=== PATIENT | male | born 1960 | race American Indian/Alaskan Native ===

== ENCOUNTER 2019-02-11 17:25 | Emergency (ER) | payer OTHER ==
[2019-02-11] MEDS ORDERED: CATAPRES PO ONE (17:57)
--- NOTE | 2019-02-11 17:57 | Emergency Department Report ---
Blank Doc - Documentation Documentation: This is a 59-year-old male that presents with headache and uncontrolled HTN. Denies trauma. This initial assessment/diagnostic orders/clinical plan/treatment(s) is/are subject to change based on patient's health status, clinical progression and re- assessment by fellow clinical providers in the ED. Further treatment and workup at subsequent clinical providers discretion. Patient/guardians urged not to elope from the ED as their condition may be serious if not clinically assessed and managed. Initial orders include: 1- Patient sent to [facility] for further evaluation and treatment 2- catapress 3- CT head
--- NOTE | 2019-02-11 20:33 | Cat Scan Report ---
PROCEDURE: CT HEAD/BRAIN WO CON TECHNIQUE: CT images of the head were obtained without the use of IV contrast HISTORY: headache COMPARISONS: None available FINDINGS: There is a 2 cm asymmetric focal white matter low-attenuation area in the left parietal lobe superior ly. Although this could be related to white matter ischemic disease, recommend MRI without and with I V contrast to exclude underlying parenchymal mass. No significant mass effect. No hydrocephalus. No e vidence of hemorrhage or acute territorial infarction. Intracranial arteries are symmetric in density . No fracture. Visualized paranasal sinuses are aerated. There is fluid attenuation the right mastoid . There is chronic deformity of the left medial orbital wall, likely posttraumatic. IMPRESSION: There is asymmetric focal white matter low-attenuation in the left parietal lobe superiorly. Although this could be related to white matter microvascular ischemic disease, recommend MRI without and with IV contrast to exclude underlying parenchymal mass, as no prior studies are available for comparison This document is electronically signed by Merle Modi MD., Feb 11 2019 08:30:59 PM ET
[2019-02-11 22:43] LABS: Basophils % (Auto) 0.4 % (0.0-1.8); Eosinophils # (Auto) 0.1 K/mm3 (0.0-0.4); Eosinophils % (Auto) 0.9 % (0.0-4.3); Hematocrit 43.3 % (35.5-45.6); Hemoglobin 14.2 gm/dl (11.8-15.2); Lymphocytes # (Auto) 2.6 K/mm3 (1.2-5.4); Lymphocytes % (Auto) 47.3 % (13.4-35.0); Mean Corpuscular HGB Conc 33 % (32-34); Mean Corpuscular Volume 90 fl (84-94); Monocytes # (Auto) 0.5 K/mm3 (0.0-0.8); Monocytes % (Auto) 9.3 % (0.0-7.3); Platelet Count 267 K/mm3 (140-440); Red Blood Count 4.78 M/mm3 (3.65-5.03); Red Cell Distribution Width 16.2 % (13.2-15.2)
[2019-02-11 23:09] LABS: Alanine Aminotransferase 12 units/L (7-56); Albumin 3.7 g/dL (3.9-5); Blood Urea Nitrogen 8 mg/dL (9-20); Calcium 9.4 mg/dL (8.4-10.2); Hemolysis Index 24
[2019-02-11 23:15] LABS: BUN/Creatinine Ratio 7
--- NOTE | 2019-02-12 01:49 | Emergency Department Report ---
ED Headache HPI - General Chief Complaint: Headache Stated Complaint: HEADACHE 4DAYS Time Seen by Provider: 02/11/19 17:55 Source: patient Exam Limitations: no limitations - History of Present Illness Timing/Duration: constant, waxing and waning, other (chronic ) Quality: severe, sharp, throbbing Head Injury Location: other (diffusely) Recent Head Trauma: chronic headaches Modifying Factors: improves with: movement Associated Symptoms: denies symptoms. denies: fatigue, facial pain, fever/chills, loss of consciousness, nausea/vomiting, nasal congestion, nasal drainage, numbness in legs/feet, seizures, sinus infection, stiff neck, vision changes, weakness Allergies/Adverse Reactions: Allergies No Known Allergies Allergy (Unverified 02/11/19 17:27) ED Review of Systems ROS: Stated complaint: HEADACHE 4DAYS Other details as noted in HPI Comment: All other systems reviewed and negative Constitutional: no symptoms reported, see HPI. denies: chills, fever, malaise, weakness Eyes: as per HPI. denies: eye pain, eye discharge, vision change ENT: as per HPI. denies: ear pain, throat pain, dental pain, hearing loss, congestion Respiratory: no symptoms reported, see HPI. denies: cough, shortness of breath, SOB with exertion Cardiovascular: as per HPI. denies: chest pain, palpitations, dyspnea on exertion, syncope, paroxysmal nocturnal dyspnea Endocrine: no symptoms reported. denies: see HPI, excessive sweating, flushing, intolerance to cold, increased hunger, increased thirst, increased urine, unexplained weight loss Gastrointestinal: as per HPI. denies: abdominal pain, nausea, vomiting, constipation, hematemesis, hematochezia Genitourinary: as per HPI. denies: urgency, dysuria, hematuria, testicular mass Musculoskeletal: as per HPI. denies: back pain, joint swelling, arthralgia, myalgia Skin: as per HPI. denies: rash, change in color, change in hair/nails Neurological: as per HPI, headache, other (dizziness). denies: numbness, paresthesias, confusion, abnormal gait, vertigo Psychiatric: as per HPI. denies: auditory hallucinations, visual hallucinations, homicidal thoughts, suicidal thoughts Hematological/Lymphatic: as per HPI ED Past Medical Hx - Past Medical History Additional medical history: low blood pressure - Surgical History Past Surgical History?: No - Social History Smoking Status: Unknown if ever smoked Substance Use Type: None ED Physical Exam - General Limitations: No Limitations General appearance: alert, in no apparent distress, anxious - Head Head exam: Present: atraumatic, normocephalic, normal inspection - Eye Eye exam: Present: normal appearance, PERRL, EOMI. Absent: conjunctival injection, nystagmus, periorbital swelling, periorbital tenderness Pupils: Present: normal accommodation - ENT ENT exam: Present: normal exam, normal orophraynx, mucous membranes moist, TM's normal bilaterally, normal external ear exam - Neck Neck exam: Present: normal inspection. Absent: tenderness, full ROM, lymphadenopathy, thyromegaly - Respiratory Respiratory exam: Present: normal lung sounds bilaterally. Absent: respiratory distress, wheezes, rales, chest wall tenderness, accessory muscle use - Cardiovascular Cardiovascular Exam: Present: regular rate, normal rhythm, normal heart sounds - GI/Abdominal GI/Abdominal exam: Present: soft, normal bowel sounds. Absent: distended, tenderness, hyperactive bowel sounds, hypoactive bowel sounds, organomegaly - Rectal Rectal exam: Present: deferred - Extremities Exam Extremities exam: Present: normal inspection, full ROM, normal capillary refill - Back Exam Back exam: Present: normal inspection. Absent: full ROM, tenderness, CVA tenderness (R), CVA tenderness (L), muscle spasm, paraspinal tenderness, vertebral tenderness - Neurological Exam Neurological exam: Present: alert, oriented X3, CN II-XII intact, normal gait, reflexes normal - Psychiatric Psychiatric exam: Present: normal affect. Absent: normal mood, anxious, flat affect, suicidal ideation - Skin Skin exam: Present: warm, dry, intact, normal color ED Course Vital Signs 02/11/19 02/11/19 02/11/19 17:44 17:55 18:00 Temperature 98.6 F 98.6 F Pulse Rate 64 64 64 Respiratory 16 16 Rate Blood Pressure 171/100 171/100 Blood Pressure 171/100 [Right] O2 Sat by Pulse 99 98 Oximetry 02/11/19 02/11/19 19:44 21:04 Temperature 97.6 F 97.6 F Pulse Rate 54 L 50 L Respiratory 16 16 Rate Blood Pressure 158/106 Blood Pressure 140/92 [Right] O2 Sat by Pulse 99 Oximetry ED Medical Decision Making - Lab Data Result diagrams: 02/11/19 22:35 02/11/19 22:35 - EKG Data Rate: bradycardia - Radiology Data Radiology results: report reviewed, image reviewed - Medical Decision Making Patient is alert and oriented 3 and is not in any distress. Patient's vital signs have significantly improved since triage, and his blood pressure has stabilized to 140/92. Labs were drawn and the test results were reviewed and are unremarkable including troponin levels. Head CT scan without contrast shows a 2 cm asymmetric focal white matter low attenuation area in the left parietal lobe superiorly. According to the radiologist's recommendations, MRI with and without contrast is highly recommended to rule out any underlying parenchymal mass. Patient's case was discussed with Dr. Brambila the ED Attending physician who also evaluated the patient and agreed with the plan of care to admit the patient to the hospital for further evaluation and possible MRI of his brain. The hospitalist physician operations research manager Dr. Caraballo was therefore paged to admit the patient to the hospital. Dr. Caraballo called back and advised that the patient needs to be transferred out of the facility because there is no neurosurgical coverage in the hospital. The transfer center was contacted and the various facilities were called for transfer. The patient was finally accepted at the [facility], and Dr. Castano the neurosurgeon at the facility accepted the patient. Patient was then transferred by road to [facility] for further evaluation. - Differential Diagnosis Chronic Headache, Dizziness, Brain mass Critical care attestation.: If time is entered above; I have spent that time in minutes in the direct care of this critically ill patient, excluding procedure time. ED Disposition Clinical Impression: Chronic headache disorder, Dizziness, Brain mass Disposition: DC/TX-70 ANOTHER TYPE HLTHCARE Is pt being admited?: Yes Does the pt Need Aspirin: No Condition: Stable Instructions: Dizziness (ED), Cluster Headache (ED) Referrals: BRANDIN BENZ MD [Primary Care Provider] - 3-5 Days Time of Disposition: 03:00 Print Language: PALESTINIAN
--- NOTE | 2019-02-12 02:26 | XRay Report ---
PROCEDURE: XR CHEST ROUTINE 2V TECHNIQUE: PA and lateral views of the chest were submitted. HISTORY: chest pain COMPARISONS: None FINDINGS: The lungs are clear. Pleural fluid is not seen. The heart size is normal. The skeletal structures do not show any acute changes. IMPRESSION: No acute cardiopulmonary process.. This document is electronically signed by Isauro Elizabeth MD., Feb 12 2019 02:24:52 AM ET
[2019-02-12 03:19] VITALS: BP 140/84
== END 2019-02-12 04:20 | disposition other institution (70) ==
LOC: ED 17:25
DX: G44.221 Chronic tension-type headache, intractable (principal); R42 Dizziness and giddiness
CPT/HCPCS: 36415; 70450; 71046; 80053; 84484; 85025; 93005; 93010; 99285

== ENCOUNTER 2019-02-28 12:34 | Emergency (ER) | payer SELFPAY ==
[2019-02-28 13:12] VITALS: BP 174/108
--- NOTE | 2019-02-28 13:14 | Emergency Department Report ---
Blank Doc - Documentation Documentation: 59 y o male presents with cc of right sided buttock to right thigh pain thats worsens with standing and laying Denies trauma, fall, injury [facility] eval
[2019-02-28] MEDS ORDERED: TORADOL IM ONE (13:44)
[2019-02-28] MEDS ORDERED: TORADOL ONE (13:47)
--- NOTE | 2019-02-28 13:48 | Emergency Department Report ---
ED Extremity Problem HPI - General Chief complaint: Extremity Problem,Nontraumatic Stated complaint: RT LEG PAIN EXTREME Time Seen by Provider: 02/28/19 13:12 Source: patient Mode of arrival: Ambulatory Limitations: No Limitations - History of Present Illness MD Complaint: extremity pain -: month(s) (2) Location: right, lower extremity Radiation: distal Quality: aching Improves with: nothing Worsens with: nothing Associated Symptoms: denies other symptoms - Related Data Allergies Allergy/AdvReac Type Severity Reaction Status Date / Time No Known Allergies Allergy Verified 02/28/19 13:12 ED Review of Systems ROS: Stated complaint: RT LEG PAIN EXTREME Other details as noted in HPI Comment: All other systems reviewed and negative Constitutional: denies: chills, fever Respiratory: denies: cough, orthopnea, shortness of breath, SOB with exertion Cardiovascular: denies: chest pain, palpitations Gastrointestinal: denies: abdominal pain, nausea Musculoskeletal: back pain Neurological: denies: headache, weakness, numbness, paresthesias, confusion ED Past Medical Hx - Past Medical History Previous Medical History?: Yes Hx Hypertension: Yes Additional medical history: low blood pressure - Surgical History Past Surgical History?: Yes - Social History Smoking Status: Never Smoker ED Physical Exam - General Limitations: No Limitations General appearance: alert, in no apparent distress - Head Head exam: Present: atraumatic, normocephalic, normal inspection - Eye Eye exam: Present: normal appearance, PERRL - ENT ENT exam: Present: normal exam, normal orophraynx, mucous membranes moist - Neck Neck exam: Present: normal inspection, full ROM. Absent: tenderness, men ingismus, lymphadenopathy, thyromegaly - Respiratory Respiratory exam: Present: normal lung sounds bilaterally - Cardiovascular Cardiovascular Exam: Present: regular rate, normal rhythm, normal heart sounds - GI/Abdominal GI/Abdominal exam: Present: soft, normal bowel sounds. Absent: distended, tenderness, guarding, rebound, rigid, organomegaly, mass, bruit, pulsatile mass, hernia - Extremities Exam Extremities exam: Present: normal inspection, full ROM, normal capillary refill. Absent: calf tenderness - Back Exam Back exam: Present: normal inspection, full ROM. Absent: tenderness, CVA tenderness (R), CVA tenderness (L), muscle spasm, paraspinal tenderness, vertebral tenderness - Neurological Exam Neurological exam: Present: alert, oriented X3, CN II-XII intact, normal gait, reflexes normal - Skin Skin exam: Present: warm, intact, normal color ED Course Vital Signs 02/28/19 02/28/19 13:10 13:23 Temperature 98.1 F Pulse Rate 85 Respiratory 20 16 Rate Blood Pressure 174/108 O2 Sat by Pulse 98 Oximetry Critical care attestation.: If time is entered above; I have spent that time in minutes in the direct care of this critically ill patient, excluding procedure time. ED Disposition Clinical Impression: Leg pain, Lumbar radiculopathy, acute Disposition: DC-01 TO HOME OR SELFCARE Is pt being admited?: No Condition: Stable Instructions: Lumbar Radiculopathy (ED), Sciatica (ED) Referrals: [facility] [Provider Group] - 3-5 Days
== END 2019-02-28 14:10 | disposition home or self-care (01) ==
LOC: ED 12:34
DX: M54.16 Radiculopathy, lumbar region (principal); I10 Essential (primary) hypertension
CPT/HCPCS: 96372; 99282; J1885

== ENCOUNTER 2019-03-28 09:05 | Emergency (ER) | payer SELFPAY ==
[2019-03-28 10:44] LABS: Hematocrit 40.3 % (35.5-45.6); Hemoglobin 13.4 gm/dl (11.8-15.2); Mean Corpuscular HGB Conc 33 % (32-34); Mean Corpuscular Volume 91 fl (84-94); Platelet Count 313 K/mm3 (140-440); Red Blood Count 4.43 M/mm3 (3.65-5.03); Red Cell Distribution Width 15.2 % (13.2-15.2)
[2019-03-28 10:54] LABS: INR 0.87 (0.87-1.13); Partial Thromboplastin Time 24.7 Sec. (24.2-36.6)
[2019-03-28 11:02] LABS: Alanine Aminotransferase 7 units/L (7-56); Albumin 3.7 g/dL (3.9-5); BUN/Creatinine Ratio 10; Blood Urea Nitrogen 10 mg/dL (9-20); Calcium 8.8 mg/dL (8.4-10.2); Hemolysis Index 44
--- NOTE | 2019-03-28 11:03 | Emergency Department Report ---
HPI - General Chief Complaint: Extremity Problem,Nontraumatic Time Seen by Provider: 03/28/19 10:31 - HPI HPI: 59-year-old -[place] male presents to ED with right leg pain. Symptoms of been going on for one month and he rates them as mild in severity. States that he first noticed symptoms after getting out of the hospital for brain issue. Denies any redness but does have some intermittent swelling. No fever, chills or night sweats. ED Past Medical Hx - Past Medical History Hx Hypertension: Yes Additional medical history: low blood pressure - Surgical History Past Surgical History?: No - Social History Smoking Status: Current Every Day Smoker Substance Use Type: None - Medications Home Medications: Home Medications Medication Instructions Recorded Confirmed Last Taken Type Cyclobenzaprine [Flexeril] 10 mg PO TID PRN #15 tablet 03/28/19 Unknown Rx amLODIPine [Norvasc] 10 mg PO DAILY 03/28/19 03/28/19 Unknown History hydroCHLOROthiazide [HCTZ] 25 mg PO DAILY 03/28/19 03/28/19 Unknown History ED Review of Systems ROS: Stated complaint: LEG PAIN/BLOOCLOTS Other details as noted in HPI Comment: All other systems reviewed and negative Constitutional: denies: see HPI Eyes: denies: eye pain Gastrointestinal: denies: abdominal pain, nausea Musculoskeletal: joint swelling Skin: denies: rash Physical Exam - Physical Exam Vital Signs: Vital Signs 03/28/19 03/28/19 09:19 10:25 Temperature 98.5 F Pulse Rate 68 Respiratory 13 Rate Blood Pressure 150/92 Blood Pressure 151/86 [Left] O2 Sat by Pulse 97 100 Oximetry Physical Exam: Physical Exam: - General Limitations: No Limitations General appearance: alert, in no apparent distress. - Head Head exam: Present: atraumatic, normocephalic - Eye Eye exam: Present: normal appearance - ENT ENT exam: Present: mucous membranes moist - Neck Neck exam: Present: normal inspection - Respiratory Respiratory exam: Present: normal lung sounds bilaterally. Absent: respiratory distress - Cardiovascular Cardiovascular Exam: Present: normal rhythm. Absent: systolic murmur, diastolic murmur, rubs, gallop - GI/Abdominal GI/Abdominal exam: Present: soft, normal bowel sounds - Extremities Exam Extremities exam: Present: Right leg thigh tenderness. - Back Exam Back exam: Present: normal inspection - Neurological Exam Neurological exam: Present: alert, oriented X3 - Psychiatric Psychiatric exam: normal affect and mood - Skin Skin exam: Present: warm, dry, intact, normal color. Absent: rash ED Course Vital Signs 03/28/19 03/28/19 09:19 10:25 Temperature 98.5 F Pulse Rate 68 Respiratory 13 Rate Blood Pressure 150/92 Blood Pressure 151/86 [Left] O2 Sat by Pulse 97 100 Oximetry ED Medical Decision Making - Lab Data Result diagrams: 03/28/19 10:17 03/28/19 10:17 Critical care attestation.: If time is entered above; I have spent that time in minutes in the direct care of this critically ill patient, excluding procedure time. ED Disposition Clinical Impression: Leg pain Qualifiers: Laterality: right Qualified Code(s): M79.604 - Pain in right leg Disposition: DC-01 TO HOME OR SELFCARE Is pt being admited?: No Does the pt Need Aspirin: No Condition: Stable Prescriptions: Cyclobenzaprine [Flexeril] 10 mg PO TID PRN #15 tablet PRN Reason: Muscle Spasm Referrals: BRANDIN BENZ MD [Primary Care Provider] - 3-5 Days
--- NOTE | 2019-03-28 11:42 | XRay Report ---
Right hip: Pain. AP and frog lateral views of the right hip show no bone or joint space pathology. The bones are well mineralized and the SI joints appear preserved. There are vascular calcifications identified in the major pelvic arteries bilaterally. Impression: No acute findings and no significant hip pathology noted.
--- NOTE | 2019-03-28 12:34 | Vascular Lab Report ---
PROCEDURE: VL VENOUS DUPLEX LE RT TECHNIQUE: Duplex Doppler sonography of the right lower extremity. Flores scale imaging with and witho ut compression, spectral waveform analysis with and without augmentation, and color flow Doppler were employed. HISTORY: pain, swelling, r/o dvt COMPARISONS: None FINDINGS: Deep Venous Thrombus: None Superficial Venous Thrombus: None Venous valvular incompetence: None Soft tissue abnormality: None IMPRESSION: No evidence of deep venous thrombosis. This document is electronically signed by Halley Arreola MD., March 28 2019 12:32:54 PM ET
[2019-03-28 12:37] VITALS: BP 174/103
== END 2019-03-28 13:20 | disposition home or self-care (01) ==
LOC: ED 09:05
DX: M79.604 Pain in right leg (principal); I10 Essential (primary) hypertension; F17.200 Nicotine dependence, unspecified, uncomplicated
CPT/HCPCS: 36415; 80053; 85027; 85610; 85730

== ENCOUNTER 2022-03-31 09:52 | Outpatient (CLI) | payer OTHER ==
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
== END 2022-03-31 09:53 | disposition home or self-care (01) ==
LOC: XRAY 09:52
PROVIDERS: ATTEND Internal Medicine
DX: M47.816 Spondylosis without myelopathy or radiculopathy, lumbar region (principal)
CPT/HCPCS: 72100